=== PATIENT | male | born 1970 | race Caucasian/White ===

== ENCOUNTER 2020-11-16 20:59 | Emergency (ER) | payer MEDICARE ==
[~2020-11-16 20:59] MED LIST: COZAAR 25MG TAB25 MG PO; LIPITOR 10MG TA10 MG PO
[2020-11-17] MEDS ORDERED: VENTOLIN HFA18 GM INH (00:44)
== END 2020-11-17 00:53 | disposition home or self-care (01) ==
LOC: FER 20:59
DX: U07.1 COVID-19 (principal); I10 Essential (primary) hypertension; E11.9 Type 2 diabetes mellitus without complications; F17.210 Nicotine dependence, cigarettes, uncomplicated
CPT/HCPCS: 36415; 71045; 84484; 93005; 94640; 94664; U0002